=== PATIENT | male | born 1995 | race American Indian/Alaskan Native ===

== ENCOUNTER 2018-05-07 08:01 | Emergency (ER) | payer OTHER ==
[2018-05-07 08:15] VITALS: BP 125/43
--- NOTE | 2018-05-07 09:13 | Emergency Department Report ---
ED General Adult HPI - General Chief complaint: Extremity Injury, Lower Stated complaint: RIGHT KNEE PAIN Time Seen by Provider: 05/07/18 08:59 Source: patient Mode of arrival: Ambulatory Limitations: No Limitations - History of Present Illness Initial comments: The patient presents to the emergency department for right knee pain. 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 Patient denies taking a direct hit to his right knee and states that his left leg was his plant leg. Patient denies hearing a pop upon injuring his knee. -: Sudden Location: lower extremity Radiation: non-radiation Severity scale (0 -10): 5 Quality: sharp, constant Consistency: constant Improves with: rest Worsens with: movement Associated Symptoms: denies other symptoms Treatments Prior to Arrival: none - Related Data Previous Rx's Medication Instructions Recorded Last Taken Type Ketorolac [Toradol] 10 mg PO Q6H PRN #15 tablet 02/07/18 Unknown Rx Methocarbamol [Robaxin TAB] 750 mg PO Q8H PRN #14 tablet 02/07/18 Unknown Rx Ibuprofen [Motrin] 800 mg PO Q8HR PRN #30 tablet 05/07/18 Unknown Rx Allergies Allergy/AdvReac Type Severity Reaction Status Date / Time No Known Allergies Allergy Verified 02/06/18 23:06 ED Review of Systems ROS: Stated complaint: RIGHT KNEE PAIN Other details as noted in HPI Comment: All other systems reviewed and negative Constitutional: denies: chills, fever Eyes: denies: eye pain, eye discharge, vision change ENT: denies: ear pain, throat pain Respiratory: denies: cough, shortness of breath, wheezing Cardiovascular: denies: chest pain, palpitations Endocrine: no symptoms reported Gastrointestinal: denies: abdominal pain, nausea, diarrhea Genitourinary: denies: urgency, dysuria Musculoskeletal: denies: back pain, joint swelling, arthralgia Skin: denies: rash, lesions Neurological: denies: headache, weakness, paresthesias Psychiatric: denies: anxiety, depression Hematological/Lymphatic: denies: easy bleeding, easy bruising ED Past Medical Hx - Past Medical History Previous Medical History?: Yes Additional medical history: murmur - Surgical History Past Surgical History?: No - Social History Smoking Status: Never Smoker Substance Use Type: None - Medications Home Medications: Home Medications Medication Instructions Recorded Confirmed Last Taken Type Ketorolac [Toradol] 10 mg PO Q6H PRN #15 tablet 02/07/18 Unknown Rx Methocarbamol [Robaxin TAB] 750 mg PO Q8H PRN #14 tablet 02/07/18 Unknown Rx Ibuprofen [Motrin] 800 mg PO Q8HR PRN #30 tablet 05/07/18 Unknown Rx ED Physical Exam - General Limitations: No Limitations General appearance: alert, in no apparent distress - Head Head exam: Present: atraumatic, normocephalic - Eye Eye exam: Present: normal appearance - ENT ENT exam: Present: mucous membranes moist - Neck Neck exam: Present: normal inspection - Respiratory Respiratory exam: Present: normal lung sounds bilaterally. Absent: respiratory distress - Cardiovascular Cardiovascular Exam: Present: regular rate, normal rhythm. Absent: systolic murmur, diastolic murmur, rubs, gallop - GI/Abdominal GI/Abdominal exam: Present: soft, normal bowel sounds. Absent: distended, tenderness - Rectal Rectal exam: Present: deferred - Extremities Exam Extremities exam: Present: other (there is a mild effusion to the right knee with laxity on anterior and posterior drawer tests) - Back Exam Back exam: Present: normal inspection - Neurological Exam Neurological exam: Present: alert, oriented X3, CN II-XII intact. Absent: motor sensory deficit - Psychiatric Psychiatric exam: Present: normal affect, normal mood - Skin Skin exam: Present: warm, dry, intact, normal color. Absent: rash ED Course Vital Signs 05/07/18 05/07/18 08:11 09:28 Temperature 97.9 F Pulse Rate 67 Respiratory 16 18 Rate Blood Pressure 125/43 [Right] O2 Sat by Pulse 100 Oximetry ED Medical Decision Making - Radiology Data Radiology results: report reviewed - Medical Decision Making Discussed results with patient and plan of care Critical care attestation.: If time is entered above; I have spent that time in minutes in the direct care of this critically ill patient, excluding procedure time. ED Disposition Clinical Impression: Right knee injury Disposition: DC-01 TO HOME OR SELFCARE Is pt being admited?: No Does the pt Need Aspirin: No Condition: Stable Instructions: Knee Sprain (ED), Knee Effusion (ED), Knee Pain (ED), Magnetic Resonance Imaging (ED) Additional Instructions: return if worse Prescriptions: Ibuprofen [Motrin] 800 mg PO Q8HR PRN #30 tablet PRN Reason: Pain Referrals: [facility] [Other] - 3-5 Days ANUJ MORROW MD [Staff Physician] - 3-5 Days Time of Disposition: 11:26
[2018-05-07] MEDS ORDERED: IBUPROFEN PO ONE (09:16)
--- NOTE | 2018-05-07 11:14 | XRay Report ---
RIGHT KNEE, 3 views: History: Pain The bony architecture is intact without evidence of fracture or dislocation. No significant soft tissue abnormality is seen. IMPRESSION: Normal right knee.
== END 2018-05-07 11:38 | disposition home or self-care (01) ==
LOC: ED 08:01
DX: M25.461 Effusion, right knee (principal)
CPT/HCPCS: 99284

== ENCOUNTER 2018-11-05 01:45 | Emergency (ER) | payer BC, OTHER ==
--- NOTE | 2018-11-05 02:51 | XRay Report ---
Right RIBS 3 views. 11/05/2018. HISTORY: Right rib pain. FINDINGS: Satisfactory alignment. A nondisplaced fracture involves the right 10th rib anterolaterally . Negative for lung infiltrate, pleural fluid or pneumothorax. Signer Name: Rg Beck MD Signed: 11/05/2018 2:47 AM Workstation Name: [id number]
--- NOTE | 2018-11-05 07:53 | Emergency Department Report ---
ED General Adult HPI - General Chief complaint: Abdominal Pain Stated complaint: RIGHT RIB PAIN Time Seen by Provider: 11/05/18 07:49 Source: patient Mode of arrival: Ambulatory Limitations: No Limitations - History of Present Illness Initial comments: 23-year-old -French male presents to the emergency room for right sided rib pain. Patient states he was playing basketball yesterday when someone hit him in the right side of chest. Patient reports that the pain is worse with deep breath and lying on the right side. Patient denies any past medical history currently takes no medications on a daily basis has no known drug allergies. Onset/Timin -: days(s) Severity scale (0 -10): 8 Quality: aching, sharp Consistency: intermittent Improves with: none Worsens with: rest (lying on right side and taking deep breaths.) Associated Symptoms: denies: chest pain, cough Treatments Prior to Arrival: none - Related Data Previous Rx's Medication Instructions Recorded Last Taken Type Ketorolac [Toradol] 10 mg PO Q6H PRN #15 tablet 02/07/18 Unknown Rx methOCARBAMOL [Robaxin TAB] 750 mg PO Q8H PRN #14 tablet 02/07/18 Unknown Rx Ibuprofen [Motrin 800 MG tab] 800 mg PO Q8HR PRN #30 tablet 11/05/18 Unknown Rx Allergies Allergy/AdvReac Type Severity Reaction Status Date / Time No Known Allergies Allergy Verified 02/06/18 23:06 ED Review of Systems ROS: Stated complaint: RIGHT RIB PAIN Other details as noted in HPI ED Past Medical Hx - Past Medical History Previous Medical History?: No Additional medical history: murmur - Surgical History Past Surgical History?: No - Social History Smoking Status: Never Smoker Substance Use Type: Marijuana - Medications Home Medications: Home Medications Medication Instructions Recorded Confirmed Last Taken Type Ketorolac [Toradol] 10 mg PO Q6H PRN #15 tablet 02/07/18 Unknown Rx methOCARBAMOL [Robaxin TAB] 750 mg PO Q8H PRN #14 tablet 02/07/18 Unknown Rx Ibuprofen [Motrin 800 MG tab] 800 mg PO Q8HR PRN #30 tablet 11/05/18 Unknown Rx ED Physical Exam - General Limitations: No Limitations General appearance: alert, in no apparent distress - Head Head exam: Present: atraumatic, normocephalic - Eye Eye exam: Present: normal appearance - ENT ENT exam: Present: mucous membranes moist - Neck Neck exam: Present: normal inspection - Respiratory Respiratory exam: Present: normal lung sounds bilaterally, chest wall tenderness (right rib cage). Absent: respiratory distress - Cardiovascular Cardiovascular Exam: Present: regular rate, normal rhythm. Absent: systolic murmur, diastolic murmur, rubs, gallop - GI/Abdominal GI/Abdominal exam: Present: soft, normal bowel sounds - Rectal Rectal exam: Present: deferred - Extremities Exam Extremities exam: Present: normal inspection - Back Exam Back exam: Present: normal inspection - Neurological Exam Neurological exam: Present: alert, oriented X3 - Psychiatric Psychiatric exam: Present: normal affect, normal mood - Skin Skin exam: Present: warm, dry, intact, normal color. Absent: rash ED Course Vital Signs 11/05/18 11/05/18 11/05/18 01:49 02:06 08:08 Temperature 98.6 F 98.6 F Pulse Rate 66 67 70 Respiratory 16 16 18 Rate Blood Pressure 122/65 122/65 Blood Pressure 118/66 [Left] O2 Sat by Pulse 100 100 99 Oximetry ED Medical Decision Making - Radiology Data Radiology results: report reviewed Patient: RAJANI WYATT MR#: [id number] : 1995 Acct:[id number] Age/Sex: 23 / M ADM Date: 11/05/18 Loc: ED Attending Dr: Ordering Physician: DENA AYALA MD Date of Service: 11/05/18 Procedure(s): XR ribs UNILAT 2V RT Accession Number(s): [id number] cc: DENA AYALA MD Fluoro Time In Minutes: Right RIBS 3 views. 11/05/2018. HISTORY: Right rib pain. FINDINGS: Satisfactory alignment. A nondisplaced fracture involves the right 10th rib anterolaterally. Negative for lung infiltrate, pleural fluid or pneumothorax. Signer Name: Rg Beck MD Signed: 11/05/2018 2:47 AM Workstation Name: [id number] Transcribed By: ES Dictated By: Rg Beck MD Electronically Authenticated By: Rg Beck MD Signed Date/Time: 11/05/18246 DD/ 4 TD/TT: - Medical Decision Making 23-year-old -French male presents to the emergency room for right sided rib pain. Patient states he was playing basketball yesterday when someone hit him in the right side of chest. Patient reports that the pain is worse with deep breath and lying on the right side. Patient denies any past medical history currently takes no medications on a daily basis has no known drug allergies. Pain Medication and an incentive spirometry Critical care attestation.: If time is entered above; I have spent that time in minutes in the direct care of this critically ill patient, excluding procedure time. ED Disposition Clinical Impression: Closed rib fracture Disposition: DC-01 TO HOME OR SELFCARE Is pt being admited?: No Does the pt Need Aspirin: No Condition: Stable Instructions: Rib Fracture (ED) Additional Instructions: Take pain medication as needed. Please use her incentive spirometry meter as demonstrated 4-5 times a day. Follow-up with the primary care provider if his symptoms persist or gets worse. Return to the emergency room if symptoms worsen shortness of breath severe chest pain. Prescriptions: Ibuprofen [Motrin 800 MG tab] 800 mg PO Q8HR PRN #30 tablet PRN Reason: Pain Referrals: VANESSA GUTIÉRREZ MD [Primary Care Provider] - 3-5 Days Forms: Work/School Release Form(ED)
[2018-11-05 08:10] VITALS: BP 118/66
== END 2018-11-05 08:08 | disposition home or self-care (01) ==
LOC: ED 01:45
DX: S22.31XA Fracture of one rib, right side, initial encounter for closed fracture (principal); F12.10 Cannabis abuse, uncomplicated; Z98.890 Other specified postprocedural states; Z79.899 Other long term (current) drug therapy; X58.XXXA Exposure to other specified factors, initial encounter; Y93.67 Activity, basketball; Y92.89 Other specified places as the place of occurrence of the external cause; Y99.8 Other external cause status